=== PATIENT | female | born 1975 | race Caucasian/White ===

== ENCOUNTER 2020-05-16 18:46 | Emergency (ER) | payer MEDICAID ==
[~2020-05-16] VITALS: Ht 154.9 cm; Wt 68.0 kg
[2020-05-16 18:47] VITALS: BP 166/112
[2020-05-16] MEDS: BACITRACIN OINT 500 UNITS/GM PKT TP ONE (20:04)
[2020-05-16] MEDS ORDERED: BACI1PAC6 TP (20:15)
[2020-05-16] MEDS ORDERED: CEPH500C16 PO (20:15)
[2020-05-16 20:21] VITALS: BP 166/112
== END 2020-05-16 20:21 | disposition home or self-care (01) ==
LOC: MED 18:46
DX: S61.211A Laceration without foreign body of left index finger without damage to nail, initial encounter (principal); S61.213A Laceration without foreign body of left middle finger without damage to nail, initial encounter; Z79.899 Other long term (current) drug therapy; W26.0XXA Contact with knife, initial encounter; Y93.89 Activity, other specified; Y92.89 Other specified places as the place of occurrence of the external cause; Y99.8 Other external cause status
CPT/HCPCS: 99283

== ENCOUNTER 2021-07-02 16:06 | Emergency (ER) | payer MEDICAID ==
[~2021-07-02] VITALS: Ht 160 cm; Wt 82.1 kg
[~2021-07-02 16:06] MED LIST: BACI1PAC6 TP; CEPH500C16 PO
[2021-07-02 16:44] VITALS: BP 120/85
[2021-07-02] MEDS ORDERED: IBUPROFEN 600 MG TAB PO ONE (17:30)
--- NOTE | 2021-07-02 17:49 | NUR ---
45/F C/O POSSIBLE BUG BITE TO LEFT SIDE OF BACK X2 DAYS, STATES PAIN WORSENING ON BILATERAL SIDES, NO SIGNS OF RASH. PATIENT DENIES FEVER, CHILLS, N/V/D.
[2021-07-02] MEDS ORDERED: HYD1C TP (17:50)
[2021-07-02] MEDS ORDERED: IBUP-2213 PO (17:50)
--- NOTE | 2021-07-02 18:22 | NUR ---
PT BANGING ON ADMITTING SCREEN. SECURITY CALLED. ATTEMPTED TO TRIAGE PT. YELLING AT STAFF. GRABBED D/C PAPERS OUT OF MY HAND AND WALKED AWAY. REFUSED TO SIGN PAPERWORK AND WOULD NOT LET ME CUT ID BRACELET. RX OF IBUPROFEN AND HYDROCORTISON SENT TO PHARMACY
== END 2021-07-02 18:22 | disposition home or self-care (01) ==
LOC: MED 16:06
DX: S20.462A Insect bite (nonvenomous) of left back wall of thorax, initial encounter (principal); F17.210 Nicotine dependence, cigarettes, uncomplicated; Z79.899 Other long term (current) drug therapy; Z79.1 Long term (current) use of non-steroidal anti-inflammatories (NSAID); Z79.2 Long term (current) use of antibiotics; Z88.0 Allergy status to penicillin; W57.XXXA Bitten or stung by nonvenomous insect and other nonvenomous arthropods, initial encounter; Y92.89 Other specified places as the place of occurrence of the external cause; Y93.89 Activity, other specified; Y99.8 Other external cause status
CPT/HCPCS: 99282

== ENCOUNTER 2021-07-22 08:59 | Emergency (ER) | payer MEDICAID ==
[~2021-07-22] VITALS: Ht 160 cm; Wt 82.6 kg
[~2021-07-22 08:59] MED LIST changes: +HYD1C TP; +IBUP-2213 PO
--- NOTE | 2021-07-22 09:01 | NUR ---
0854-PT WILL BROCK TO CHAIR [place]
[2021-07-22 09:02] VITALS: BP 114/60
[2021-07-22] MEDS ORDERED: BACI1PAC6 TP (09:24)
[2021-07-22] MEDS: BACITRACIN OINT 500 UNITS/GM PKT TP ONE ×2 (09:45→09:47)
[2021-07-22] MEDS: ACETAMINOPHEN EXTRA STRENGTH 500 MG TAB PO ONE ×2 (09:46→09:47)
--- NOTE | 2021-07-22 09:48 | NUR ---
CLEARED WOUND ON RIGHT SIDE OF NECK/JAW WITH NORMAL SALINE AND BETADINE SOLUTION. DRESSED WITH A BANDAID.
--- NOTE | 2021-07-22 10:26 | NUR ---
PATIENT BIB [employer]. PATIENT EXAMINED BY DR. KATZ. PATIENT MEDICALLY CLEARED AND RELEASED IN CUSTODY IN STABLE CONDITION. ORIGINAL PRE-BOOK FORM GIVEN TO OFFICER.
== END 2021-07-22 10:26 ==
LOC: MED 08:59
DX: L98.499 Non-pressure chronic ulcer of skin of other sites with unspecified severity (principal); M54.40 Lumbago with sciatica, unspecified side; Z98.890 Other specified postprocedural states; Z79.899 Other long term (current) drug therapy; Z79.2 Long term (current) use of antibiotics; Z79.1 Long term (current) use of non-steroidal anti-inflammatories (NSAID); Z88.0 Allergy status to penicillin
CPT/HCPCS: 99283

== ENCOUNTER 2021-08-11 22:29 | Emergency (ER) | payer MEDICAID ==
[~2021-08-11] VITALS: Ht 165.1 cm; Wt 74.8 kg
[2021-08-11 22:33] VITALS: BP 134/78
--- NOTE | 2021-08-11 22:40 | NUR ---
TO LOBBY FOLLOWING TRIAGE
[2021-08-12] MEDS ORDERED: BACITRACIN OINT 500 UNITS/GM PKT TP ONE (01:15)
[2021-08-12] MEDS ORDERED: CEPH-588 PO (01:23)
[2021-08-12] MEDS ORDERED: NAPR-54 PO (01:23)
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
[2021-08-12 01:42] VITALS: BP 134/78
--- NOTE | 2021-08-12 01:42 | NUR ---
Patient discharged with v/s stable. Written and verbal after care instructions given and explained. Patient alert, oriented and verbalized understanding of instructions. Ambulatory with steady gait. All questions addressed prior to discharge. ID band removed. Patient advised to follow up with PMD. Rx of KEFLEX AND NAPROSYN given. Patient educated on indication of medication including possible reaction and side effects. Opportunity to ask questions provided and answered.
== END 2021-08-12 01:42 | disposition home or self-care (01) ==
LOC: MED 22:29
DX: L03.115 Cellulitis of right lower limb (principal); Z98.890 Other specified postprocedural states; Z79.1 Long term (current) use of non-steroidal anti-inflammatories (NSAID); Z79.2 Long term (current) use of antibiotics; Z79.899 Other long term (current) drug therapy; Z88.0 Allergy status to penicillin
CPT/HCPCS: 73630; 99283